=== PATIENT | male | born 1935 | race Caucasian/White ===

== ENCOUNTER 2016-06-26 08:49 | Inpatient (IN) | payer MEDICARE, BC ==
[~2016-06-26] VITALS: Ht 182.9 cm; Wt 84.4 kg
[~2016-06-26 08:49] MED LIST: ACTONEL35 MG OR; ALLOPURINOL100 MG PO; ALTOPREV20 MG PO; AMBIEN10 MG PO; AMBIEN5 MG PO; AMITRIPTYLIN10 MG PO; ASA LOW DOSE81 MG OR; ASPIRIN EC81 MG PO; CALCIUM D- OR; CALCIUM600 M2 PO; COLCHICINE0.6 M2 PO; CRESTOR10 MG OR; DESITIN13 % EX; DOCUSATE CAL240 MG PO; FISH OIL OR; FISH OIL1000 MG PO; FOLIC ACID1 MG PO; GLUCOS/CHOND1 TAB OR; GLYCOLAX3350 N1 PO; HUMALOG100 MG/ML SC; HUMULIN N1 ML SC; KEFLEX500 M1 PO; LEVOFLOXACIN250 M1 PO; LISINOPRIL10 MG PO; LORTAB 10-325 M1 TAB PO; LOVASTATIN20 M1 PO; LOVASTATIN20 MG PO; METHOTREXATE25 MG/ML IJ; MORPHINE SUL30 M5 PO; NIACIN500 M2 PO; NORCO1 TA1 PO; NORCO1 TAB PO; NOVOLIN N1 ML SC; PERCOCET 10/31 COMBO PO; PREDNISONE10 MG PO; PREDNISONE5 MG PO; PROBIOTIC1 TAB PO; PROCARDIA XL30 MG PO; SINEQUAN10 MG PO; VITAMIN B-121000 MCG PO; VITAMIN B-650 MG PO; VITAMIN D400 UNI1 OR; VITAMIN D5000 UNIT PO; [UNRECOGNIZED DRUG - OTHER] OR
[2016-06-26 09:41] LABS: HEMATOCRIT 40.2 % (39.0-50.0); HEMOGLOBIN 12.8 g/dl (14.0-18.0); MEAN CELL VOLUME 93.1 fL CALC (80.0-100.0); MEAN CORPUSCULAR HGB 29.6 pG CALC (26.0-32.0); MEAN CORPUSCULAR HGB CONC 31.8 g/L CALC (32.0-36.0); NEUT# 4.97 thou/uL (1.82-7.42); RED BLOOD COUNT 4.32 mill/uL (4.70-6.10)
[2016-06-26 09:55] LABS: ALBUMIN 3.7 g/dL (3.2-5.0); ALKALINE PHOSPHATASE 66 u/l (38-126); ANION GAP 14 (6-22 (CALC)); BILIRUBIN, TOTAL 0.3 mg/dL (0.0-1.4); BUN 16 mg/dL (8-23); BUN/CREATININE RATIO 23 (12-20 (CALC)); CALCIUM 8.8 mg/dL (8.4-10.2); CARBON DIOXIDE 31 mmol/l (22-30); CHLORIDE 101 mmol/l (95-108); CREATININE 0.7 mg/dL (0.7-1.3); GFR > 60 ML/MIN (>=60 (CALC)); GFR FOR AFR.AMER. > 60 ML/MIN (>=60 (CALC)); GLUCOSE 207 mg/dL (82-115); LIPASE 24 u/l (23-300); SGOT/AST 20 u/l (19-48); SGPT/ALT 29 u/l (11-66); SODIUM 142 mmol/l (137-146); TOTAL PROTEIN 6.6 g/dL (6.3-8.2)
[2016-06-26 10:03] LABS: ACT PARTIAL THROMBO TIME 20.8 SECONDS (20.0-32.5); INTERNATIONAL NORMALIZED RATIO 0.9 RATIO (0.7-1.3); PROTHROMBIN TIME 9.8 SECONDS (9.0-12.5)
[2016-06-26] MEDS ORDERED: ALLOPURINOL100 MG PO (10:57)
[2016-06-26] MEDS ORDERED: AMBIEN5 MG PO (11:01)
[2016-06-26] MEDS ORDERED: LEVEMIR1000 UNITS SC (11:03)
[2016-06-26 12:30] LABS: URINE BILIRUBIN - DIPSTICK NEGATIVE (NEGATIVE); URINE BLOOD DIPSTICK NEGATIVE (NEGATIVE); URINE CLARITY CLEAR; URINE COLOR YELLOW; URINE GLUCOSE - DIPSTICK 250 mg/dL (NEGATIVE); URINE KETONE NEGATIVE (NEGATIVE); URINE LEUK ESTERASE NEGATIVE (NEGATIVE); URINE NITRITE - DIPSTICK NEGATIVE (Negative); URINE PH 7.5 (4.5-8.0); URINE PROTEIN - DIPSTICK NEGATIVE (NEG-TRACE); URINE UROBILINOGEN - DIPSTICK 0.2 E.U./dL (0.2)
[2016-06-26 14:32] VITALS: BP 152/73
[2016-06-26 19:27] VITALS: BP 148/76
[2016-06-27 04:14] VITALS: BP 126/66
[2016-06-27 05:44] LABS: HEMATOCRIT 36.9 % (39.0-50.0); HEMOGLOBIN 11.6 g/dl (14.0-18.0); IMMATURE GRANULOCYTES 0.5 % (0.0-1.0); MEAN CELL VOLUME 93.9 fL CALC (80.0-100.0); MEAN CORPUSCULAR HGB 29.5 pG CALC (26.0-32.0); MEAN CORPUSCULAR HGB CONC 31.4 g/L CALC (32.0-36.0); NEUT# 5.39 thou/uL (1.82-7.42); RED BLOOD COUNT 3.93 mill/uL (4.70-6.10); RED CELL DISTRI WIDTH 14.3 % (11.5-15.5)
[2016-06-27 06:30] LABS: ALBUMIN 2.9 g/dL (3.2-5.0); ALKALINE PHOSPHATASE 59 u/l (38-126); ANION GAP 10 (6-22 (CALC)); BILIRUBIN, TOTAL 0.3 mg/dL (0.0-1.4); BUN 9 mg/dL (8-23); BUN/CREATININE RATIO 14 (12-20 (CALC)); CALCIUM 8.6 mg/dL (8.4-10.2); CARBON DIOXIDE 32 mmol/l (22-30); CHLORIDE 103 mmol/l (95-108); CREATININE 0.7 mg/dL (0.7-1.3); GFR > 60 ML/MIN (>=60 (CALC)); GFR FOR AFR.AMER. > 60 ML/MIN (>=60 (CALC)); GLUCOSE 86 mg/dL (82-115); POTASSIUM 4.6 mmol/l (3.5-5.1); SGOT/AST 15 u/l (19-48); SGPT/ALT 29 u/l (11-66); SODIUM 140 mmol/l (137-146); TOTAL PROTEIN 5.4 g/dL (6.3-8.2)
[2016-06-27 07:46] VITALS: BP 153/58
[2016-06-27 15:15] VITALS: BP 143/74
[2016-06-27 19:25] VITALS: BP 128/71
[2016-06-28 04:00] VITALS: BP 106/59
[2016-06-28 15:11] VITALS: BP 104/53
[2016-06-28 19:23] VITALS: BP 120/68
[2016-06-29 00:30] VITALS: BP 85/48
[2016-06-29 03:57] VITALS: BP 120/64
[2016-06-29 04:52] LABS: HEMATOCRIT 36.8 % (39.0-50.0); HEMOGLOBIN 11.5 g/dl (14.0-18.0); IMMATURE GRANULOCYTES 0.6 % (0.0-1.0); MEAN CELL VOLUME 94.4 fL CALC (80.0-100.0); MEAN CORPUSCULAR HGB 29.5 pG CALC (26.0-32.0); MEAN CORPUSCULAR HGB CONC 31.3 g/L CALC (32.0-36.0); NEUT# 6.04 thou/uL (1.82-7.42); RED BLOOD COUNT 3.9 mill/uL (4.70-6.10); RED CELL DISTRI WIDTH 14.5 % (11.5-15.5)
[2016-06-29 05:19] LABS: ALBUMIN 2.7 g/dL (3.2-5.0); ALKALINE PHOSPHATASE 56 u/l (38-126); ANION GAP 14 (6-22 (CALC)); BILIRUBIN, TOTAL 0.4 mg/dL (0.0-1.4); BUN 11 mg/dL (8-23); BUN/CREATININE RATIO 15 (12-20 (CALC)); CALCIUM 8.1 mg/dL (8.4-10.2); CALCULATED LDLCHOLESTEROL 64 mg/dL (62-129 (CALC)); CARBON DIOXIDE 22 mmol/l (22-30); CHLORIDE 105 mmol/l (95-108); CREATININE 0.7 mg/dL (0.7-1.3); GFR > 60 ML/MIN (>=60 (CALC)); GFR FOR AFR.AMER. > 60 ML/MIN (>=60 (CALC)); GLUCOSE 245 mg/dL (82-115); HDL CHOLESTEROL 41 mg/dL (>=40); POTASSIUM 4.1 mmol/l (3.5-5.1); SGOT/AST 16 u/l (19-48); SGPT/ALT 29 u/l (11-66); SODIUM 137 mmol/l (137-146); TOTAL CHOLESTEROL 129 mg/dl (0-199); TOTAL PROTEIN 4.9 g/dL (6.3-8.2); TOTAL TRIGLYCERIDES 121 mg/dl (30-149); VLDL CHOLESTROL 24 mg/dl (0-38 (CALC))
[2016-06-29 07:30] VITALS: BP 119/54
[2016-06-29 15:41] VITALS: BP 103/51
[2016-06-29 19:42] VITALS: BP 115/64
[2016-06-30 04:45] VITALS: BP 94/52
[2016-06-30 06:29] LABS: HEMATOCRIT 36.3 % (39.0-50.0); HEMOGLOBIN 11.6 g/dl (14.0-18.0); IMMATURE GRANULOCYTES 0.9 % (0.0-1.0); MEAN CELL VOLUME 93.1 fL CALC (80.0-100.0); MEAN CORPUSCULAR HGB 29.7 pG CALC (26.0-32.0); NEUT# 5.5 thou/uL (1.82-7.42); RED BLOOD COUNT 3.9 mill/uL (4.70-6.10); RED CELL DISTRI WIDTH 14.5 % (11.5-15.5)
[2016-06-30 06:44] LABS: ANION GAP 14 (6-22 (CALC)); BUN 18 mg/dL (8-23); BUN/CREATININE RATIO 23 (12-20 (CALC)); CALCIUM 8.3 mg/dL (8.4-10.2); CARBON DIOXIDE 24 mmol/l (22-30); CHLORIDE 109 mmol/l (95-108); CREATININE 0.8 mg/dL (0.7-1.3); GFR > 60 ML/MIN (>=60 (CALC)); GFR FOR AFR.AMER. > 60 ML/MIN (>=60 (CALC)); POTASSIUM 3.4 mmol/l (3.5-5.1); SODIUM 143 mmol/l (137-146)
[2016-06-30 06:47] LABS: GLUCOSE 38 mg/dL (82-115)
[2016-06-30 07:35] VITALS: BP 111/59
[2016-06-30 07:40] VITALS: BP 142/83
[2016-06-30] MEDS ORDERED: LISINOPRIL10 MG PO (10:03)
[2016-06-30] MEDS ORDERED: LOVASTATIN20 M1 PO (10:03)
[2016-06-30] MEDS ORDERED: PROCARDIA XL30 MG PO (10:03)
[2016-06-30] MEDS ORDERED: AMBIEN5 MG PO (10:03)
[2016-06-30] MEDS ORDERED: EC ASPIRIN325 MG PO (10:03)
[2016-06-30] MEDS ORDERED: CALCI10 PO (10:06)
[2016-06-30] MEDS ORDERED: DOCUSATE CAL240 MG PO (10:06)
[2016-06-30] MEDS ORDERED: PROBIOTIC1 TAB PO (10:06)
[2016-06-30] MEDS ORDERED: VITAMIN B-650 MG PO (10:07)
[2016-06-30] MEDS ORDERED: LEVEMIR FL100 UNIT/M SC (10:07)
[2016-06-30] MEDS ORDERED: NIACIN500 M2 PO (10:07)
[2016-06-30] MEDS ORDERED: VITAMIN B-121000 MCG PO (10:07)
[2016-06-30] MEDS ORDERED: FOLIC ACID1 MG PO (10:07)
[2016-06-30] MEDS ORDERED: HUMALOG100 MG/ML SC (10:08)
[2016-06-30] MEDS ORDERED: VITAMIN D5000 UNIT PO (10:08)
[2016-06-30] MEDS ORDERED: FISH OIL1000 MG PO (10:08)
[2016-06-30] MEDS ORDERED: ALLOPURINOL100 MG PO (10:08)
[2016-06-30] MEDS ORDERED: OXYCODONE/ACETA1 TA8 PO (10:09)
[2016-06-30 11:07] VITALS: BP 156/71
== END 2016-06-30 11:33 | disposition home or self-care (01) | DRG 378 ==
LOC: ENPENDDIS → ED 08:49 → ED-I 12:33 → ED 13:49 → MS2 13:50 → ED 13:50 → MS2 06-30 11:33
PROVIDERS: Family Medicine; ADMIT Internal Medicine Geriatric Medicine; ATTEND Internal Medicine Geriatric Medicine
DX: K57.33 Diverticulitis of large intestine without perforation or abscess with bleeding (principal); F19.20 Other psychoactive substance dependence, uncomplicated; E11.22 Type 2 diabetes mellitus with diabetic chronic kidney disease; M06.9 Rheumatoid arthritis, unspecified; I12.9 Hypertensive chronic kidney disease with stage 1 through stage 4 chronic kidney disease, or unspecified chronic kidney disease; N18.9 Chronic kidney disease, unspecified; E78.5 Hyperlipidemia, unspecified; M19.90 Unspecified osteoarthritis, unspecified site; I25.10 Atherosclerotic heart disease of native coronary artery without angina pectoris; F41.9 Anxiety disorder, unspecified; F32.9 Major depressive disorder, single episode, unspecified; G89.29 Other chronic pain; Z79.4 Long term (current) use of insulin
CPT/HCPCS: Q9967